=== PATIENT | female | born 1940 | race Caucasian/White ===

== ENCOUNTER 2024-03-30 11:17 | Day surgery (SDC) | payer MEDICARE ==
[2024-03-30] MEDS ORDERED: LOVA40TA2 PO (13:09)
[2024-03-30] MEDS ORDERED: LISI1TAB39 PO (13:09)
== END 2024-03-30 18:00 | disposition home or self-care (01) ==
LOC: ER 11:17 → SDC 14:40 → OBS 18:00 → UNDOADMOB 18:00
PROVIDERS: ATTEND Orthopaedic Surgery
DX: S72.142A Displaced intertrochanteric fracture of left femur, initial encounter for closed fracture (principal); X58.XXXA Exposure to other specified factors, initial encounter; Y93.89 Activity, other specified; Y92.89 Other specified places as the place of occurrence of the external cause; Y99.8 Other external cause status
CPT/HCPCS: 99285; 76000; 71045; 73552; 73521; 80053; 85025; 36415; C9290; J7120 ×3; A4217 ×2; J1170; J0131; J2405; J2250; J3010; J3490; 73550-LT

== ENCOUNTER 2024-03-30 11:17 | Inpatient (IN) | payer MEDICARE ==
[~2024-03-30] VITALS: Ht 160 cm; Wt 62.1 kg
[2024-03-30] VITALS (24 sets, daily range): BP systolic 104–162; BP diastolic 42–98; PULSE 59–68; RESP 16–18; TEMP 96.9–98.5; O2SAT 95–100
[2024-03-30] MEDS ORDERED: OFIRMEV 1000 MG/100 ML 100 ML IV ONE (11:28)
[2024-03-30] MEDS: OFIRMEV 1000 MG/100 ML IV STA (11:29)
[2024-03-30] MEDS ORDERED: SUBLIMAZE 100MCG/2ML ONE (11:29)
[2024-03-30] MEDS: SUBLIMAZE 100MCG/2ML IV PRN (11:30)
[2024-03-30 11:37] LABS: BASOPHIL % 0.4 % (0.0-0.2); EOSINOPHIL # 0.2 10^3/uL (0.0-0.2); EOSINOPHIL % 2.8 % (0.0-5.0); HEMATOCRIT(ML) 34.1 % (36.0-46.0); HEMOGLOBIN 11.2 g/dL (12.0-15.0); LYMPHOCYTES # 1.23 10^3/uL1 (1.0-4.8); LYMPHOCYTES % 17.3 % (24.0-44.0); MEAN CORP HGB 29.9 pg (26-34); MEAN CORP HGB CONCENTRATION 32.8 g/dL (33-36.5); MEAN CORP VOLUME 91.2 fL (78-100); MONOCYTES # 0.8 10^3/uL (0.3-0.8); MONOCYTES % 10.7 % (5.0-12.0); NEUTROPHIL # 4.9 10^3/uL (1.8-7.7); NEUTROPHILS % 68.5 % (41.0-85.0); PLATELET COUNT 187 10^3/uL (150-400); RED BLOOD CELL 3.74 10^6/uL (4.00-5.20); RED CELL DISTRIBUTION WIDTH 14.5 % (11.5-14.5); WHITE BLOOD CELL 7.1 10^3/uL (4.5-11.0)
[2024-03-30 11:44] LABS: +ADD MANUAL DIFF(NO CHRG) NO
[2024-03-30 11:53] LABS: ALBUMIN/GLOBULIN RATIO 0.909; ANION GAP 14.1; BUN/CREATININE RATIO 22.85 (10.0-20.0); CARBON DIOXIDE 25.4 mmol/L (20.0-32); CREATININE SERUM 1.05 mg/dL (0.59-1.40); EST GFR, NON-AA 50.3 (>/=60); POTASSIUM 3.5 mmol/L (3.6-5.2)
[2024-03-30] MEDS ORDERED: LISI1TAB39 PO (13:09)
[2024-03-30] MEDS ORDERED: LOVA40TA2 PO (13:09)
[2024-03-30] MEDS ORDERED: ZOFRAN IV PRN (14:00)
[2024-03-30] MEDS ORDERED: APRESOLINE IV PRN (14:00)
[2024-03-30] MEDS ORDERED: LACTATED RINGERS 1,000 ML ONE ×2 (14:13→17:18)
[2024-03-30] MEDS ORDERED: VERSED ONE (14:35)
[2024-03-30] MEDS ORDERED: EXPAREL 266 MG/20 ML VIAL IJ ONE (14:36)
[2024-03-30] MEDS ORDERED: SENSORCAINE-MPF 0.25% VIAL ONE (14:36)
[2024-03-30] MEDS: LACTATED RINGERS 1,000 ML IV ONE (14:40)
[2024-03-30] MEDS ORDERED: SODIUM CHLORIDE IRR BOTTLE IR ONE (14:46)
[2024-03-30] MEDS ORDERED: WATER ONE (14:46)
[2024-03-30] MEDS ORDERED: DIPRIVAN 100 ML IV ONE (15:08)
[2024-03-30] MEDS ORDERED: TRANEXAMIC 1,000 MG/100ML-NACL 200 ML IV ONE (15:09)
[2024-03-30] MEDS ORDERED: ANCEF ONE (15:09)
[2024-03-30] MEDS ORDERED: NS 100ML 100 ML IV ONE (15:09)
[2024-03-30] MEDS ORDERED: ANCEF IV ONE (15:10)
[2024-03-30] MEDS: ANCEF IV ONE (15:30)
[2024-03-30] MEDS: ANCEF 2 GM/D5W 50ML 50 ML IV SCH (16:12)
[2024-03-30] MEDS ORDERED: DILAUDID ONE (16:58)
[2024-03-30] MEDS: DILAUDID IV ONE ×2 (17:09→17:18)
[2024-03-30] MEDS: COLACE PO SCH (21:09)
[2024-03-30] MEDS: LIPITOR PO SCH (21:09)
[2024-03-30] MEDS: MORPHINE SULFATE IV PRN (21:48)
[2024-03-31] VITALS (7 sets, daily range): BP systolic 119–139; BP diastolic 53–68; PULSE 75–92; RESP 12–20; TEMP 97.5–98.2; O2SAT 90–100
[2024-03-31] MEDS: TYLENOL PO PRN (03:55)
[2024-03-31 04:48] LABS: HEMATOCRIT(ML) 30.6 % (36.0-46.0); HEMOGLOBIN 10.2 g/dL (12.0-15.0); MEAN CORP HGB 29.9 pg (26-34); MEAN CORP HGB CONCENTRATION 33.3 g/dL (33-36.5); MEAN CORP VOLUME 89.7 fL (78-100); RED BLOOD CELL 3.41 10^6/uL (4.00-5.20); RED CELL DISTRIBUTION WIDTH 14.3 % (11.5-14.5); WHITE BLOOD CELL 10.2 10^3/uL (4.5-11.0)
[2024-03-31 04:57] LABS: ANION GAP 13.8; BUN/CREATININE RATIO 15.84 (10.0-20.0); CALCIUM 8.4 mg/dL (8.4-10.5); CARBON DIOXIDE 25.1 mmol/L (20.0-32); CREATININE SERUM 1.01 mg/dL (0.59-1.40); EST GFR, NON-AA 52.6 (>/=60); POTASSIUM 3.9 mmol/L (3.6-5.2)
[2024-03-31] MEDS: ZESTRIL PO SCH (09:32)
[2024-03-31] MEDS: KLOR-CON 10 PO SCH (09:33)
[2024-03-31] MEDS ORDERED: LOVENOX SQ SCH ×2 (14:00→17:00)
[2024-03-31] MEDS: ULTRAM PO PRN (14:44)
[2024-03-31] MEDS: LOVENOX SQ SCH (17:15)
[2024-03-31] MEDS: NORCO 5MG PO PRN (20:53)
[2024-04-01] VITALS (7 sets, daily range): BP systolic 120–135; BP diastolic 52–77; PULSE 75–94; RESP 16–18; TEMP 97.8–99.5; O2SAT 93–99
[2024-04-01 08:06] LABS: HEMATOCRIT(ML) 28.3 % (36.0-46.0); HEMOGLOBIN 9.3 g/dL (12.0-15.0); MEAN CORP HGB 29.7 pg (26-34); MEAN CORP HGB CONCENTRATION 32.9 g/dL (33-36.5); MEAN CORP VOLUME 90.4 fL (78-100); RED BLOOD CELL 3.13 10^6/uL (4.00-5.20); WHITE BLOOD CELL 10.7 10^3/uL (4.5-11.0)
[2024-04-02] VITALS (9 sets, daily range): BP systolic 109–138; BP diastolic 54–68; PULSE 67–89; RESP 16–20; TEMP 97.2–98.3; O2SAT 91–99
[2024-04-03] VITALS: BP 122/54; PULSE 84; RESP 17; TEMP 98.2; O2SAT 96
[2024-04-03 05:09] VITALS: BP 132/57; PULSE 82; RESP 17; TEMP 97.7; O2SAT 97
[2024-04-03 07:46] LABS: BUN/CREATININE RATIO 20.98 (10.0-20.0); CALCIUM 8.8 mg/dL (8.4-10.5); CARBON DIOXIDE 26.4 mmol/L (20.0-32); CREATININE SERUM 0.81 mg/dL (0.59-1.40); EST GFR, NON-AA 67.9 (>/=60); POTASSIUM 4.4 mmol/L (3.6-5.2)
[2024-04-03 07:50] LABS: HEMATOCRIT(ML) 24.6 % (36.0-46.0); HEMOGLOBIN 8.2 g/dL (12.0-15.0); MEAN CORP HGB 30.3 pg (26-34); MEAN CORP HGB CONCENTRATION 33.3 g/dL (33-36.5); MEAN CORP VOLUME 90.8 fL (78-100); RED BLOOD CELL 2.71 10^6/uL (4.00-5.20); RED CELL DISTRIBUTION WIDTH 14.9 % (11.5-14.5); WHITE BLOOD CELL 8.6 10^3/uL (4.5-11.0)
[2024-04-03 08:36] VITALS: BP 144/51; PULSE 83; RESP 16; TEMP 100; O2SAT 97
[2024-04-03 08:43] VITALS: PULSE 76; RESP 16; O2SAT 97
[2024-04-03] MEDS ORDERED: DOCU-123 PO (11:25)
[2024-04-03] MEDS ORDERED: ONDA4TAB13 PO (11:25)
[2024-04-03] MEDS ORDERED: LISI20TA21 PO (11:25)
[2024-04-03] MEDS ORDERED: ACET325T24 PO (11:25)
[2024-04-03] MEDS ORDERED: TRAM50TA PO (11:25)
[2024-04-03] MEDS ORDERED: ATOR10TA PO (11:25)
[2024-04-03] MEDS ORDERED: ENOX40DI SQ (11:25)
[2024-04-03 12:00] VITALS: BP 138/64; PULSE 98; RESP 16; TEMP 98.4; O2SAT 95
== END 2024-04-03 14:00 | disposition swing bed (61) | DRG 481 ==
LOC: ER 11:17 → MS 12:52
PROVIDERS: ADMIT Internal Medicine; ATTEND Internal Medicine
PROC: 0QS704Z Reposition Left Upper Femur with Internal Fixation Device, Open Approach (ICD-10-PCS; principal; 2024-03-30 15:30)
DX: S72.142A Displaced intertrochanteric fracture of left femur, initial encounter for closed fracture (principal); D62 Acute posthemorrhagic anemia; M16.12 Unilateral primary osteoarthritis, left hip; I10 Essential (primary) hypertension; E78.00 Pure hypercholesterolemia, unspecified; W01.0XXA Fall on same level from slipping, tripping and stumbling without subsequent striking against object, initial encounter; Y93.01 Activity, walking, marching and hiking; Y92.89 Other specified places as the place of occurrence of the external cause; Y99.8 Other external cause status
CPT/HCPCS: 36415; 71045; 73521; 76000; 80048; 80053; 85025; 85027; 97161; 97166; 99285; A4217; C1713; C1769; C9290; G0378; J0131; J1170; J1650; J2250; J2405; J3010; J3490; J7120; J8499; 73550-LT; 97110-GP; 97116-GP; 97530-GP; 97535-GO

== ENCOUNTER 2024-04-03 14:45 | Inpatient (IN) | payer MEDICARE ==
[~2024-04-03] VITALS: Ht 160 cm; Wt 63.1 kg
[~2024-04-03 14:45] MED LIST: ACET325T24 PO; ATOR10TA PO; DOCU-123 PO; ENOX40DI SQ; LISI1TAB39 PO; LISI20TA21 PO; LOVA40TA2 PO; ONDA4TAB13 PO; TRAM50TA PO
[2024-04-03 17:22] VITALS: RESP 16; O2SAT 97
[2024-04-03 19:23] VITALS: BP 133/59; PULSE 64; RESP 18; TEMP 98.2; O2SAT 98
[2024-04-03 19:24] VITALS: PULSE 64
[2024-04-03] MEDS ORDERED: ZOFRAN ODT SL PRN (19:30)
[2024-04-03] MEDS ORDERED: TYLENOL PO PRN (19:30)
[2024-04-03] MEDS: COLACE PO SCH (20:20)
[2024-04-03] MEDS: LIPITOR PO SCH (20:20)
[2024-04-03 20:38] VITALS: PULSE 102; RESP 20; O2SAT 94
[2024-04-04] MEDS: ULTRAM PO PRN (05:27)
[2024-04-04 07:30] LABS: BASOPHIL % 0.3 % (0.0-0.2); EOSINOPHIL # 0.3 10^3/uL (0.0-0.2); EOSINOPHIL % 3.7 % (0.0-5.0); HEMATOCRIT(ML) 27.6 % (36.0-46.0); HEMOGLOBIN 8.2 g/dL (12.0-15.0); LYMPHOCYTES # 0.84 10^3/uL1 (1.0-4.8); LYMPHOCYTES % 12.6 % (24.0-44.0); MEAN CORP HGB 29.5 pg (26-34); MEAN CORP HGB CONCENTRATION 29.7 g/dL (33-36.5); MEAN CORP VOLUME 99.3 fL (78-100); MONOCYTES # 0.8 10^3/uL (0.3-0.8); NEUTROPHIL # 4.8 10^3/uL (1.8-7.7); NEUTROPHILS % 71.1 % (41.0-85.0); PLATELET COUNT 47 10^3/uL (150-400); RED BLOOD CELL 2.78 10^6/uL (4.00-5.20); RED CELL DISTRIBUTION WIDTH 15.5 % (11.5-14.5); WHITE BLOOD CELL 6.7 10^3/uL (4.5-11.0)
[2024-04-04 07:45] LABS: ANION GAP 12.9; BUN/CREATININE RATIO 17.72 (10.0-20.0); CALCIUM 9.2 mg/dL (8.4-10.5); CARBON DIOXIDE 21.4 mmol/L (20.0-32); CREATININE SERUM 0.79 mg/dL (0.59-1.40); EST GFR, NON-AA 69.8 (>/=60); POTASSIUM 4.3 mmol/L (3.6-5.2)
[2024-04-04 08:26] LABS: +ADD MANUAL DIFF(NO CHRG) NO
[2024-04-04 08:43] VITALS: BP 146/53; PULSE 75; RESP 17; TEMP 97.8; O2SAT 92
[2024-04-04] MEDS: ZESTRIL PO SCH (09:17)
[2024-04-04 10:27] LABS: BASOPHIL % 0.5 % (0.0-0.2); EOSINOPHIL # 0.3 10^3/uL (0.0-0.2); EOSINOPHIL % 3.5 % (0.0-5.0); HEMATOCRIT(ML) 29.1 % (36.0-46.0); HEMOGLOBIN 9.4 g/dL (12.0-15.0); LYMPHOCYTES # 1.02 10^3/uL1 (1.0-4.8); LYMPHOCYTES % 12.8 % (24.0-44.0); MEAN CORP HGB 29.8 pg (26-34); MEAN CORP HGB CONCENTRATION 32.3 g/dL (33-36.5); MEAN CORP VOLUME 92.4 fL (78-100); MONOCYTES # 1.1 10^3/uL (0.3-0.8); MONOCYTES % 13.4 % (5.0-12.0); NEUTROPHIL # 5.6 10^3/uL (1.8-7.7); NEUTROPHILS % 69.5 % (41.0-85.0); PLATELET COUNT 233 10^3/uL (150-400); RED BLOOD CELL 3.15 10^6/uL (4.00-5.20); RED CELL DISTRIBUTION WIDTH 15.2 % (11.5-14.5)
[2024-04-04 10:31] LABS: +ADD MANUAL DIFF(NO CHRG) NO
[2024-04-04] MEDS: NORCO 10MG PO PRN (10:39)
[2024-04-04 12:30] VITALS: PULSE 83; RESP 20; O2SAT 98
[2024-04-04] MEDS: XARELTO PO SCH (13:37)
[2024-04-04] MEDS ORDERED: LOVENOX SQ SCH (17:00)
[2024-04-04 20:49] VITALS: BP 133/58; PULSE 82; RESP 16; TEMP 98.5; O2SAT 93
[2024-04-04 21:07] VITALS: PULSE 84; RESP 18; O2SAT 97
[2024-04-05 07:58] VITALS: BP 143/61; PULSE 68; RESP 20; TEMP 97.6; O2SAT 96
[2024-04-05 08:50] VITALS: PULSE 72; RESP 18; O2SAT 96
[2024-04-05 20:00] VITALS: BP 138/77; PULSE 88; RESP 18; TEMP 97.3; O2SAT 91
[2024-04-06 07:57] VITALS: BP 145/67; PULSE 79; RESP 18; TEMP 98.1; O2SAT 96
[2024-04-06] MEDS: PROTONIX PO SCH (09:39)
[2024-04-06 19:33] VITALS: BP 120/50; PULSE 88; RESP 18; TEMP 97.8; O2SAT 95
[2024-04-07 07:54] VITALS: BP 126/55; PULSE 74; RESP 18; TEMP 98.5; O2SAT 95
[2024-04-07 19:15] VITALS: BP 124/57; PULSE 86; RESP 17; TEMP 97.2; O2SAT 98
[2024-04-08 04:50] LABS: BASOPHIL % 0.6 % (0.0-0.2); EOSINOPHIL # 0.4 10^3/uL (0.0-0.2); HEMATOCRIT(ML) 25.6 % (36.0-46.0); HEMOGLOBIN 8.3 g/dL (12.0-15.0); LYMPHOCYTES # 1.12 10^3/uL1 (1.0-4.8); LYMPHOCYTES % 18.1 % (24.0-44.0); MEAN CORP HGB 30.2 pg (26-34); MEAN CORP HGB CONCENTRATION 32.4 g/dL (33-36.5); MEAN CORP VOLUME 93.1 fL (78-100); MONOCYTES # 0.9 10^3/uL (0.3-0.8); MONOCYTES % 14.7 % (5.0-12.0); NEUTROPHIL # 3.7 10^3/uL (1.8-7.7); NEUTROPHILS % 60.1 % (41.0-85.0); PLATELET COUNT 289 10^3/uL (150-400); RED BLOOD CELL 2.75 10^6/uL (4.00-5.20); RED CELL DISTRIBUTION WIDTH 15.5 % (11.5-14.5); WHITE BLOOD CELL 6.2 10^3/uL (4.5-11.0)
[2024-04-08 04:53] LABS: +ADD MANUAL DIFF(NO CHRG) NO
[2024-04-08 05:05] LABS: ANION GAP 11.2; BUN/CREATININE RATIO 16.16 (10.0-20.0); CALCIUM 9.1 mg/dL (8.4-10.5); CARBON DIOXIDE 23.6 mmol/L (20.0-32); CREATININE SERUM 0.99 mg/dL (0.59-1.40); EST GFR, NON-AA 53.8 (>/=60); POTASSIUM 3.8 mmol/L (3.6-5.2)
[2024-04-08 07:41] VITALS: BP 116/58; PULSE 73; RESP 18; TEMP 98.2; O2SAT 94
[2024-04-08 19:18] VITALS: BP 139/68; PULSE 85; RESP 17; TEMP 98; O2SAT 92
[2024-04-09 08:16] VITALS: BP 154/61; PULSE 88; RESP 16; TEMP 98.7; O2SAT 91
[2024-04-09 19:04] VITALS: BP 129/51; PULSE 81; RESP 18; TEMP 97.8; O2SAT 93
[2024-04-10 08:15] VITALS: BP 128/50; PULSE 78; RESP 15; TEMP 98; O2SAT 98
[2024-04-10 19:11] VITALS: BP 130/55; PULSE 81; RESP 18; TEMP 97.1; O2SAT 98
[2024-04-11 08:15] VITALS: BP 148/71; PULSE 80; RESP 18; TEMP 97.8; O2SAT 96
[2024-04-11 22:00] VITALS: BP 136/40; PULSE 83; RESP 16; TEMP 97.8; O2SAT 95
[2024-04-12 08:47] VITALS: BP 122/55; PULSE 73; RESP 18; TEMP 97.8; O2SAT 18
[2024-04-12 20:24] VITALS: BP 128/57; PULSE 80; RESP 18; TEMP 97.6; O2SAT 98
[2024-04-13 08:05] VITALS: BP 129/66; PULSE 66; RESP 18; TEMP 97.5; O2SAT 97
[2024-04-13 20:47] VITALS: BP 135/49; PULSE 83; RESP 15; TEMP 98.6; O2SAT 99
[2024-04-14 08:47] VITALS: BP 126/52; PULSE 74; RESP 18; TEMP 97.5; O2SAT 92
[2024-04-14 19:57] VITALS: BP 121/54; PULSE 78; RESP 17; TEMP 98.2; O2SAT 99
[2024-04-15 07:52] VITALS: BP 118/52; PULSE 69; RESP 18; TEMP 97.6; O2SAT 97
[2024-04-15 19:03] VITALS: BP_SYST 103; BP_SYST 141; BP_DIAS 55; BP_DIAS 69; PULSE 103; PULSE 85; RESP 17; RESP 18; TEMP 97.3; O2SAT 94; O2SAT 96
[2024-04-16 08:12] VITALS: BP 146/72; PULSE 70; RESP 18; TEMP 98.5; O2SAT 96
[2024-04-16] MEDS ORDERED: RIVA10TA PO (12:26)
[2024-04-16] MEDS ORDERED: PANT40TA6 PO (12:26)
== END 2024-04-16 14:47 | disposition home health service (06) | DRG 561 ==
LOC: SBU 14:45
PROVIDERS: ADMIT Internal Medicine; ATTEND Internal Medicine
DX: Z47.1 Aftercare following joint replacement surgery (principal); Z96.642 Presence of left artificial hip joint; I10 Essential (primary) hypertension; Z91.012 Allergy to eggs; Z91.040 Latex allergy status
CPT/HCPCS: 36415; 73502; 80048; 85025; 93971; 97162; 97166; 97530; J8499; 97110-GO; 97110-GP; 97116-GP; 97535-GO